=== PATIENT | female | born 1945 | race Caucasian/White ===

== ENCOUNTER 2019-02-22 13:41 | Emergency (ER) | payer OTHER ==
[~2019-02-22] VITALS: Ht 149.9 cm; Wt 95.2 kg
[~2019-02-22 13:41] MED LIST: ACET325 PO; ALBU90I INH; ALBU90OI INH; AZIT250 PO; CLOT1TC TOP; DICYCLOMINE; DOXY100 PO; DULO30 PO; FURO40; FURO80 PO; GABA300 PO; GLYB5; GLYMET2.5; HYDACE5 PO; HYDACE7.5 PO; INSR10I SUBQ; INSULANI SUBQ; INSULISPEN SUBQ; LORA.5 PO; METF500 PO; METO50 PO; MORP15ER PO; NITR.4SL SL; OXYC5 PO; POLY17UD PO; POTA10T; POTCHL10ER PO; PRED20 PO; QUIN10 PO; QUIN5; SENNA-DOCUSATE; SIMV10 PO; TRAM50 PO; WARF1; WARF2 PO; [UNRECOGNIZED DRUG - OTHER]; [UNRECOGNIZED DRUG - OTHER]
[2019-02-22 14:11] LABS: BASOPHILS ABSOLUTE AUTO 0.06 K/mm3 (0.00-0.23); BASOPHILS PERCENT AUTO 1 % (0-2); EOSINOPHILS ABSOLUTE AUTO 0.12 K/mm3 (0.00-0.68); EOSINOPHILS PERCENT AUTO 1 % (0-6); Hematocrit 42.2 % (33.0-51.0); Hemoglobin 13.9 g/dL (11.5-16.0); IMMATURE GRAN ABSOLUTE AUTO 0.03 K/mm3 (0.00-0.10); IMMATURE GRAN PERCENT AUTO 0 % (0-1); LYMPHOCYTES ABSOLUTE AUTO 1.87 K/mm3 (0.84-5.20); LYMPHOCYTES PERCENT AUTO 22 % (21-46); MONOCYTES ABSOLUTE AUTO 0.75 K/mm3 (0.16-1.47); MONOCYTES PERCENT AUTO 9 % (4-13); Mean Corpuscular HGB 32.2 pg (26.0-34.0); Mean Corpuscular HGB Conc 32.9 g/dL (31.5-36.5); Mean Corpuscular Volume 98 fL (80-100); Mean Platelet Volume 9.8 fL (9.1-12.4); NEUTROPHILS ABSOLUTE AUTO 5.77 K/mm3 (1.96-9.15); NEUTROPHILS PERCENT AUTO 67 % (41-73); Platelet Count 332 K/mm3 (150-400); RDW Coefficient Variation 13.3 % (11.7-14.2); RDW Standard Deviation 47.8 fL (35.1-46.3); Red Blood Cell Count 4.32 M/mm3 (3.80-5.20)
[2019-02-22 14:30] LABS: Alanine Aminotransfer (ALT/SGP 25 U/L (12-78); Albumin, Blood 3.7 g/dL (3.4-5.0); Albumin/Globulin Ratio 0.9 (0.8-1.8); Alk Phos 65 U/L (50-136); Anion Gap 7 mmol/L (6-16); Aspartate Aminotrans (AST/SGOT 21 U/L (12-37); Bilirubin, Total 0.5 mg/dL (0.1-1.0); Blood Urea Nitrogen 24 mg/dL (8-24); Bun/Creatinine Ratio 33.9 (12.0-20.0); CO2, Blood 28 mmol/L (21-32); Calcium, Blood 9.4 mg/dL (8.5-10.1); Chloride, Blood 106 mmol/L (98-108); Creatinine, Blood 0.71 mg/dL (0.40-1.00); Globulin, Blood 3.9 g/dL (2.2-4.0); Glomerular Filtration Rate >60 (60-); Glucose, Blood 187 mg/dL (70-99); Potassium, Blood 4.4 mmol/L (3.5-5.5); Sodium, Blood 141 mmol/L (136-145); Total Protein, Blood 7.6 g/dL (6.4-8.2)
[2019-02-22] MEDS ORDERED: Vibramycin100 MG PO (15:00)
== END 2019-02-22 15:31 | disposition home or self-care (01) ==
LOC: ER 13:41
PROVIDERS: Physician Assistant
DX: S81.802A Unspecified open wound, left lower leg, initial encounter (principal); L03.116 Cellulitis of left lower limb; E11.9 Type 2 diabetes mellitus without complications; I48.91 Unspecified atrial fibrillation; I10 Essential (primary) hypertension; Z88.0 Allergy status to penicillin; Z88.1 Allergy status to other antibiotic agents; Z91.018 Allergy to other foods; Z88.8 Allergy status to other drugs, medicaments and biological substances; Z79.899 Other long term (current) drug therapy
CPT/HCPCS: 36415; 73590; 80053; 85025; 87070; 87075; 87077; 87147; 87186; 87205; 96365; 99283-25

== ENCOUNTER 2019-03-05 00:26 | Day surgery (SDC) | payer OTHER ==
[~2019-03-05 00:26] MED LIST changes: +Vibramycin100 MG PO
== END 2019-03-05 22:57 | disposition home or self-care (01) ==
LOC: WOUND 00:26
DX: E11.622 Type 2 diabetes mellitus with other skin ulcer (principal); L97.822 Non-pressure chronic ulcer of other part of left lower leg with fat layer exposed; E11.40 Type 2 diabetes mellitus with diabetic neuropathy, unspecified; I87.2 Venous insufficiency (chronic) (peripheral); I10 Essential (primary) hypertension; I48.91 Unspecified atrial fibrillation
CPT/HCPCS: G0463

== ENCOUNTER 2019-03-18 00:34 | Day surgery (SDC) | payer OTHER | END 2019-03-18 22:44 | disposition home or self-care (01) | LOC: WOUND 00:34 | DX: E11.622 Type 2 diabetes mellitus with other skin ulcer (principal); L97.822 Non-pressure chronic ulcer of other part of left lower leg with fat layer exposed; E11.40 Type 2 diabetes mellitus with diabetic neuropathy, unspecified; I87.2 Venous insufficiency (chronic) (peripheral); I10 Essential (primary) hypertension; I48.91 Unspecified atrial fibrillation; E66.01 Morbid (severe) obesity due to excess calories; Z68.41 Body mass index [BMI] 40.0-44.9, adult ==

== ENCOUNTER 2019-03-25 00:06 | Day surgery (SDC) | payer OTHER | END 2019-03-25 22:36 | disposition home or self-care (01) | LOC: WOUND 00:06 | DX: E11.622 Type 2 diabetes mellitus with other skin ulcer (principal); L97.821 Non-pressure chronic ulcer of other part of left lower leg limited to breakdown of skin; E11.40 Type 2 diabetes mellitus with diabetic neuropathy, unspecified; I10 Essential (primary) hypertension; I48.91 Unspecified atrial fibrillation; I87.2 Venous insufficiency (chronic) (peripheral); E66.9 Obesity, unspecified; Z68.41 Body mass index [BMI] 40.0-44.9, adult ==

== ENCOUNTER 2019-04-01 00:24 | Day surgery (SDC) | payer OTHER | END 2019-04-01 22:47 | disposition home or self-care (01) | LOC: WOUND 00:24 | DX: E11.622 Type 2 diabetes mellitus with other skin ulcer (principal); L97.822 Non-pressure chronic ulcer of other part of left lower leg with fat layer exposed; E11.40 Type 2 diabetes mellitus with diabetic neuropathy, unspecified; I87.2 Venous insufficiency (chronic) (peripheral); I10 Essential (primary) hypertension; I48.91 Unspecified atrial fibrillation; E66.9 Obesity, unspecified; Z68.41 Body mass index [BMI] 40.0-44.9, adult ==

== ENCOUNTER 2019-04-03 07:39 | Day surgery (SDC) | payer OTHER | END 2019-04-03 23:05 | disposition home or self-care (01) | LOC: WOUND 07:39 | DX: E11.622 Type 2 diabetes mellitus with other skin ulcer (principal); L97.822 Non-pressure chronic ulcer of other part of left lower leg with fat layer exposed; I87.2 Venous insufficiency (chronic) (peripheral); I10 Essential (primary) hypertension ==

== ENCOUNTER 2019-04-07 14:30 | Day surgery (SDC) | payer OTHER | END 2019-04-07 23:07 | disposition home or self-care (01) | LOC: WOUND 14:30 | DX: E11.622 Type 2 diabetes mellitus with other skin ulcer (principal); L97.821 Non-pressure chronic ulcer of other part of left lower leg limited to breakdown of skin; I87.2 Venous insufficiency (chronic) (peripheral); E11.40 Type 2 diabetes mellitus with diabetic neuropathy, unspecified; I10 Essential (primary) hypertension; E66.9 Obesity, unspecified; Z68.41 Body mass index [BMI] 40.0-44.9, adult ==

== ENCOUNTER 2019-04-09 00:25 | Day surgery (SDC) | payer OTHER | END 2019-04-09 22:55 | disposition home or self-care (01) | LOC: WOUND 00:25 | DX: E11.622 Type 2 diabetes mellitus with other skin ulcer (principal); L97.822 Non-pressure chronic ulcer of other part of left lower leg with fat layer exposed; I87.2 Venous insufficiency (chronic) (peripheral) ==

== ENCOUNTER 2019-04-11 02:01 | Day surgery (SDC) | payer OTHER | END 2019-04-11 23:00 | disposition home or self-care (01) | LOC: WOUND 02:01 | DX: E11.622 Type 2 diabetes mellitus with other skin ulcer (principal); L97.822 Non-pressure chronic ulcer of other part of left lower leg with fat layer exposed; E11.40 Type 2 diabetes mellitus with diabetic neuropathy, unspecified; I10 Essential (primary) hypertension ==

== ENCOUNTER 2019-04-14 00:32 | Day surgery (SDC) | payer OTHER | END 2019-04-14 23:06 | disposition home or self-care (01) | LOC: WOUND 00:32 | DX: E11.622 Type 2 diabetes mellitus with other skin ulcer (principal); L97.821 Non-pressure chronic ulcer of other part of left lower leg limited to breakdown of skin; E11.40 Type 2 diabetes mellitus with diabetic neuropathy, unspecified; I10 Essential (primary) hypertension; I87.2 Venous insufficiency (chronic) (peripheral) ==

== ENCOUNTER 2019-04-16 15:33 | Day surgery (SDC) | payer OTHER | END 2019-04-16 23:13 | disposition home or self-care (01) | LOC: WOUND 15:33 | DX: E11.622 Type 2 diabetes mellitus with other skin ulcer (principal); L97.822 Non-pressure chronic ulcer of other part of left lower leg with fat layer exposed; I87.2 Venous insufficiency (chronic) (peripheral); I10 Essential (primary) hypertension ==

== ENCOUNTER 2019-04-18 01:07 | Day surgery (SDC) | payer OTHER | END 2019-04-18 22:59 | disposition home or self-care (01) | LOC: WOUND 01:07 | DX: E11.622 Type 2 diabetes mellitus with other skin ulcer (principal); L97.822 Non-pressure chronic ulcer of other part of left lower leg with fat layer exposed; E11.40 Type 2 diabetes mellitus with diabetic neuropathy, unspecified; I10 Essential (primary) hypertension; I87.2 Venous insufficiency (chronic) (peripheral) | CPT/HCPCS: G0463 ==

== ENCOUNTER 2019-04-25 14:30 | Day surgery (SDC) | payer OTHER | END 2019-04-25 23:48 | disposition home or self-care (01) | LOC: WOUND 14:30 | DX: E11.622 Type 2 diabetes mellitus with other skin ulcer (principal); L97.822 Non-pressure chronic ulcer of other part of left lower leg with fat layer exposed; E11.40 Type 2 diabetes mellitus with diabetic neuropathy, unspecified; I87.2 Venous insufficiency (chronic) (peripheral); I10 Essential (primary) hypertension | CPT/HCPCS: G0463 ==

== ENCOUNTER 2019-04-28 14:22 | Day surgery (SDC) | payer OTHER | END 2019-04-28 23:20 | disposition home or self-care (01) | LOC: WOUND 14:22 | DX: E11.622 Type 2 diabetes mellitus with other skin ulcer (principal); L97.822 Non-pressure chronic ulcer of other part of left lower leg with fat layer exposed; I10 Essential (primary) hypertension; I87.2 Venous insufficiency (chronic) (peripheral); E66.9 Obesity, unspecified; Z68.41 Body mass index [BMI] 40.0-44.9, adult ==

== ENCOUNTER 2019-05-05 14:23 | Day surgery (SDC) | payer OTHER | END 2019-05-05 22:54 | disposition home or self-care (01) | LOC: WOUND 14:23 | DX: E11.622 Type 2 diabetes mellitus with other skin ulcer (principal); L97.822 Non-pressure chronic ulcer of other part of left lower leg with fat layer exposed; E66.9 Obesity, unspecified; I87.2 Venous insufficiency (chronic) (peripheral); I10 Essential (primary) hypertension; Z68.41 Body mass index [BMI] 40.0-44.9, adult; Z79.899 Other long term (current) drug therapy; Z79.4 Long term (current) use of insulin; Z79.01 Long term (current) use of anticoagulants ==

== ENCOUNTER 2019-05-12 13:46 | Day surgery (SDC) | payer OTHER | END 2019-05-12 22:45 | disposition home or self-care (01) | LOC: WOUND 13:46 | DX: E11.622 Type 2 diabetes mellitus with other skin ulcer (principal); I87.2 Venous insufficiency (chronic) (peripheral); L97.829 Non-pressure chronic ulcer of other part of left lower leg with unspecified severity; E66.9 Obesity, unspecified; I10 Essential (primary) hypertension; Z68.41 Body mass index [BMI] 40.0-44.9, adult; Z79.899 Other long term (current) drug therapy; Z79.4 Long term (current) use of insulin | CPT/HCPCS: G0463 ==

== ENCOUNTER 2019-05-22 15:06 | Day surgery (SDC) | payer OTHER | END 2019-05-23 23:11 | disposition home or self-care (01) | LOC: WOUND 15:06 | DX: E11.622 Type 2 diabetes mellitus with other skin ulcer (principal); L97.829 Non-pressure chronic ulcer of other part of left lower leg with unspecified severity; E11.40 Type 2 diabetes mellitus with diabetic neuropathy, unspecified; G47.30 Sleep apnea, unspecified; F41.9 Anxiety disorder, unspecified; I48.91 Unspecified atrial fibrillation; I10 Essential (primary) hypertension; I87.2 Venous insufficiency (chronic) (peripheral); E66.9 Obesity, unspecified; Z68.42 Body mass index [BMI] 45.0-49.9, adult; Z88.0 Allergy status to penicillin; Z88.1 Allergy status to other antibiotic agents; Z91.018 Allergy to other foods; Z79.4 Long term (current) use of insulin; Z79.01 Long term (current) use of anticoagulants; Z79.899 Other long term (current) drug therapy | CPT/HCPCS: G0463 ==

== ENCOUNTER 2021-06-17 15:42 | Inpatient (IN) | payer OTHER ==
[~2021-06-17] VITALS: Ht 152.4 cm; Wt 99.2 kg
[~2021-06-17 15:42] MED LIST changes: -CLOT1TC TOP; +CLOTRIMAZOLE AF1524 TOP; +DOCUZEN 8.6-501 EACH PO; +MIRALAX17 GM PO; +NOVOLOG FL100 UNIT/3 SC; -POLY17UD PO; -SENNA-DOCUSATE; -[UNRECOGNIZED DRUG - OTHER]
[2021-06-17 16:40] LABS: BASOPHILS ABSOLUTE AUTO 0.05 K/mm3 (0.00-0.23); BASOPHILS PERCENT AUTO 1 % (0-2); EOSINOPHILS ABSOLUTE AUTO 0.17 K/mm3 (0.00-0.68); EOSINOPHILS PERCENT AUTO 2 % (0-6); Hematocrit 31.7 % (33.0-51.0); Hemoglobin 10.1 g/dL (11.5-16.0); IMMATURE GRAN ABSOLUTE AUTO 0.04 K/mm3 (0.00-0.10); IMMATURE GRAN PERCENT AUTO 0 % (0-1); LYMPHOCYTES ABSOLUTE AUTO 2.58 K/mm3 (0.84-5.20); LYMPHOCYTES PERCENT AUTO 25 % (21-46); MONOCYTES ABSOLUTE AUTO 1.12 K/mm3 (0.16-1.47); MONOCYTES PERCENT AUTO 11 % (4-13); Mean Corpuscular HGB 31.5 pg (26.0-34.0); Mean Corpuscular HGB Conc 31.9 g/dL (31.5-36.5); Mean Corpuscular Volume 99 fL (80-100); Mean Platelet Volume 9.7 fL (9.1-12.4); NEUTROPHILS ABSOLUTE AUTO 6.36 K/mm3 (1.96-9.15); NEUTROPHILS PERCENT AUTO 62 % (41-73); Platelet Count 364 K/mm3 (150-400); RDW Coefficient Variation 13.8 % (11.7-14.2); RDW Standard Deviation 50.6 fL (35.1-46.3); Red Blood Cell Count 3.21 M/mm3 (3.80-5.20); White Blood Cell Count 10.32 K/mm3 (4.00-11.30)
[2021-06-17 17:04] LABS: Alanine Aminotransfer (ALT/SGP 19 U/L (12-78); Albumin, Blood 2.8 g/dL (3.4-5.0); Albumin/Globulin Ratio 0.7 (0.8-1.8); Alk Phos 52 U/L (50-136); Anion Gap 14 mmol/L (6-16); Aspartate Aminotrans (AST/SGOT 17 U/L (12-37); Bilirubin, Total 0.3 mg/dL (0.1-1.0); Blood Urea Nitrogen 74 mg/dL (8-24); Bun/Creatinine Ratio 14.7 (12.0-20.0); CO2, Blood 23 mmol/L (21-32); Calcium, Blood 9.1 mg/dL (8.5-10.1); Chloride, Blood 90 mmol/L (98-108); Creatinine, Blood 5.05 mg/dL (0.40-1.00); Globulin, Blood 3.9 g/dL (2.2-4.0); Glomerular Filtration Rate 8 (60-); Glucose, Blood 52 mg/dL (70-99); Potassium, Blood 4.7 mmol/L (3.5-5.5); Sodium, Blood 127 mmol/L (136-145); Total Protein, Blood 6.7 g/dL (6.4-8.2); Troponin I <0.015 ng/mL (0.000-0.040)
[2021-06-17 19:08] LABS: Influenza A, PCR NEGATIVE (NEGATIVE); Influenza B, PCR NEGATIVE (NEGATIVE); Resp Syncytial Virus, PCR NEGATIVE (NEGATIVE); SARS-Cov-2 (COVID-19) PCR, MMC NEGATIVE (NEGATIVE)
--- NOTE | 2021-06-17 21:44 | NUR ---
PT RECEIVED AROUND 1930 FROM EMERGENCY DEPARTMENT. PT WITH PIV RIGHT FOREARM AND LEFT AC. D51/2NS @ 75ML/HR. ADDITIONAL SITE SOUGHT FOR NS 150ML/HR THE LEFT AC IS HER DOMINANT SIDE, ALARMING FREQUENTLY. PT IS UPSET AND TEARFUL THAT SHE IS HOSPITALIZED. DOESN'T UNDERSTAND HOW ONE DAY OF DIARRHEA AND VOMITING HAVE MADE HER SO ILL. HER LUNGS ARE CLEAR, TIGHT, DIMINISHED, SHE DENIES ANY PROBLEMS WITH THEM, ALTHOUGH SHE LOOKS SHORT OF BREATH, SHE DENIES IT. SATS ARE 99%. HER BELLY IS TIGHT, FIRM, TENDER, SHE STATES "HURTS". IS BURPING BUT NO EMESIS. SHE DENIES THE NEED TO URINATE, FEELS THAT SHE SHOULD BE ABLE TO GO TO THE TOILET IN THE ROOM, DISCUSSED USING THE BEDPAN WHEN THE NEED ARISES SHE IS PRETTY WEAK. SHE ADMITS TO DIABETES AND THIS BEING HER ONLY ILLNESS. 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 SHE HAS EXPRESSED THAT SHE WOULD LIKE TO NOT HAVE CPR SHOULD THAT BECOME AN ISSUE. SHE IS HAVING A DIFFICULT TIME GETTING COMFORTABLE SHE PREFERS TO SLEEP IN A RECLINER AT HOME. SHE DENIES ANY PRESSURE ULCERS OR SKIN CONCERNS, NONE VISIBLE. SHE HAS ASKED THAT SHE BE ABLE TO SLEEP.
--- NOTE | 2021-06-17 21:57 | NUR ---
JUST WENT IN TO CHECK ON JOSEFINA, SHE WAS IN A BIT OF "PANIC" SAYING SHE COULDN'T BREATHE, HER SATS WERE 96%, NO VISIBLE CHANGE ON THE ECG, THEN SHE SAYS, "I FORGOT TO TELL YOU I WEAR OXYGEN AT NIGHT". OXYGEN PLACED, CALL TO FOR UPDATE.
--- NOTE | 2021-06-18 00:36 | NUR ---
JOSEFINA ASKED FOR A SANDWICH AND SOME WATER, SO WHILE ASSESSING THINGS, NOTED THAT THE LEFT UPPER ARM IV SITE IS NOW SWOLLEN AND UNCOMFORTABLE TO THE PATIENT. THE IV FLUID WAS MOVED TO HER RIGHT FOREARM AND THAT SITE WAS ASSESSED AND NOTICED TO BE RED AND INFLAMMED WELL. PT NOT COMPLAINING, JUST SAID THEY WERE TENDER. CHARGE NURSE IN TO ASSESS THE VESSELS FOR PG PLACEMENT.
[2021-06-18 04:54] LABS: Bun/Creatinine Ratio 13.3 (12.0-20.0); Calcium, Blood 8.4 mg/dL (8.5-10.1); Creatinine, Blood 5.48 mg/dL (0.40-1.00); Potassium, Blood 5.7 mmol/L (3.5-5.5)
--- NOTE | 2021-06-18 06:14 | NUR ---
SINCE PLACED THE CENTRAL LINE, JOSEFINA HAS BEEN ABLE TO SLEEP SOME DURING THE SHIFT, THE IV PUMP WOULD BEEP OR AN ALARM WOULD SOUND AND SHE WOULD EXPRESS HER FRUSTRATION THAT SHE WASN'T ABLE TO STAY ASLEEP. SHE HAS NOT VOMITED, CONTINUES TO DRINK WATER. FEELS NAUSEOUS AT TIMES. SHE WAS C/O HER LEGS CRAMING AND WANTED TO SIT ON THE EDGE OF THE BED LETTING HER LEGS DANGLE. ONCE THERE SHE THOUGHT SHE WOULD TRY TO GO TO THE [facility] [place]. SHE TRANSFERRED WELL, ALTHOUGH CONTINUES TO SAY, "I JUST DON'T FEEL GOOD" AND "I JUST WANT TO GO HOME". SHE WAS ABLE TO SIT FOR A MOMENT OF TIME AND THEN SAID SHE JUST WASN'T ABLE TO GO. SHE WAS RETURNED TO BED AND NEEDED TO BE REPOSITIONED TO COMFORT. SHE DOESN'T LIKE ANY POSITION THAT REQUIRES HER HEAD TO BE LAID BACK. SHE BEGINS TO BREATHE RAPIDLY AND C/O DIZZINESS. SHE IS QUICKLY BOOSTED AND THE BACK RETURNED TO THE UPRIGHT POSITION. HER BLOOD PRESSURE CONTINUES TO BE LABILE, WHILE SLEEPING SHE DROPPED TO THE 80'S SYSTOLIC.
--- NOTE | 2021-06-18 08:00 | NUR ---
AM ASSESSMENT: PT IS A&0 X4. REPORTS 6/10 LOW BACK PAIN. PT APPEARS ANXIOUS. PT ASSISTED BY RECORD CUTTER OOB TO BSC. PT VOIDED SMALL AMOUNT OF DARK, ÁNGEL URINE AND HAD A BM-STOOL SENT PER ORDERS. PT REPORTS VERTIGO, VERY WEAK AND UNSTEADEY GETTING BACK TO BED. PT IS A HEAVY, 2 PERSON, FULL ASSIST. PT FLOPPED DOWN ON THE EDGE OF THE BED AND WAS NOT ABLE TO MOVE FURTHER. SHE WAS VERY SOB AND DIAPHORETIC. LUNGS DIMINISHED IN THE BASES AND SATS>90% ON 3 LITLERS NASAL CANULA. NO NOTED COUGH. NPO FOR NOW PT VOMITED 50 CC OF EMESIS AND THEN DRY HEAVING. # 16 FR YOUSIF PLACED STRICT I&O NEED. U/A SENT PER YOUSIF INSERTION PROTOCOL. PT DOMITILA AREA/LABIA FOLDS VERY RED AND EXCORIATED. WILL RE-CHECK CHEM PROFILE @ [address] DALEY.
[2021-06-18 09:56] LABS: Source, Urine Clean Catch
[2021-06-18 09:59] LABS: Appearance, Urine Hazy (Clear); Bilirubin, Urine Neg (Neg); Blood, Urine 3+ (Neg); Color, Urine Yellow (P-Yellow); Glucose Qualitative, Urine 1+ (Neg); Ketones, Urine Neg (Neg); Leukocyte Esterase, Urine 3+ (Neg); Nitrite, Urine Neg (Neg); Protein, Urine 3+ (Neg); Specific Gravity, Urine 1.025 (1.003-1.022); Urobilinogen, Urine NORM (Normal)
[2021-06-18 10:22] LABS: Bacteria Mod /hpf; Squamous Epithelial Cells Mod /hpf (Few)
--- NOTE | 2021-06-18 10:39 | NUR ---
PT VERY RESTLESS AND AGITATED. PICKING AT GOWN, REACHING FOR YOUSIF TUBING, AND PICKING AT RIJ CENTRAL LINE. DR DALEY UPDATED. PT MED WITH ATIVAN 1 MG IVP X 1-SEE EMAR.
--- NOTE | 2021-06-18 10:45 | NUR ---
PT PULLED STAT LOCK OFF AND WAS FOUND PULLING ON YOUSIF CATH. SMALL AMOUNT OF HEMATURIA NOTED.
[2021-06-18 10:53] LABS: Campylobacter Sp Not Detected (NOT DETECT)
[2021-06-18 10:54] LABS: Adenovirus F 40/41 Not Detected (NOT DETECT); Astrovirus Not Detected (NOT DETECT); Cryptosporidium Not Detected (NOT DETECT); Cyclospora Cayetanensis Not Detected (NOT DETECT); E. Coli O157 Not Detected (NOT DETECT); Entamoeba Histolytica Not Detected (NOT DETECT); Enteroaggregative E. coli-EAEC Not Detected (NOT DETECT); Enteropathogenic E. coli-EPEC Not Detected (NOT DETECT); Enterotoxigenic E. coli-ETEC Not Detected (NOT DETECT); Giardia Lamblia Not Detected (NOT DETECT); Norovirus GI/GII Not Detected (NOT DETECT); Plesiomonas Shigelloides Not Detected (NOT DETECT); Rotavirus A Not Detected (NOT DETECT); Salmonella Sp Detected (NOT DETECT); Sapovirus Not Detected (NOT DETECT); Shiga Toxin-prod E. coli-STEC Not Detected (NOT DETECT); Shigella/Enteroin E. coli-EIEC Not Detected (NOT DETECT); Vibrio Cholerae Not Detected (NOT DETECT); Vibrio Sp Not Detected (NOT DETECT); Yersinia Enterocolitica Not Detected (NOT DETECT)
[2021-06-18 11:24] LABS: Bun/Creatinine Ratio 12.7 (12.0-20.0); Creatinine, Blood 5.59 mg/dL (0.40-1.00); Potassium, Blood 5.8 mmol/L (3.5-5.5)
--- NOTE | 2021-06-18 11:43 | NUR ---
DR. DALEY UPDATED WITH CHEM PROFILE RESULTS. PT INTERMITTENTLY RESTLESS AND PICKING AT LINES AND TUBES. PT ORIENTED TO PERSON AND PLACE. HOWEVER, PT FALLING ASLEEP MID SENTENCE AND BECOMING MORE AND MORE OBTUNDED. RR 30'S AND PT AUDIBLY WHEEZY. DR. DALEY MADE AWARE. IVF STOPPED, PT MED WITH BUMEX 2 MG IVP X 1. URINE OUTPUT MINIMAL. STAT CXR DONE AND BIPAP PLACED.
--- NOTE | 2021-06-18 11:51 | NUR ---
PT RESTING QUIETLY ON BIPAP 14/8 WITH FIO2 45%-SATS>90%, LUNGS COARSE AND WHEEZY TO UPPER LOBES AND DIMINISHED WITH CRACKLES TO BASES.
--- NOTE | 2021-06-18 12:25 | NUR ---
PT POA FOR HEALTHCARE-DEB UPDATED TO PT DECLINE IN STATUS. FAMILY AWARE THAT PT RENAL FUNCTION CONTINUES TO DECLINE AND THAT DIALYSIS MAY BE NECESSARY IF PT DOES NOT RESPOND TO BUMEX. ACCORDING TO DEB, PT WAS VERY CLEAR THAT SHE DID NOT WANT ALOT OF INVASIVE PROCEDURES DONE. DEB STATES THAT PT HAS EXPRESSED "JUST LET ME GO IF IT IS MY TIME." DEB TO CALL AND CHECK ON PT @ 1330 PRIOR TO VISITING HOURS. IF PT CONDITION CONTINUES TO DECLINE, WILL ARRANGE FOR FAMILY MEETING TO DISCUSS PLAN OF CARE/POSSIBLE COMFORT CARE.
--- NOTE | 2021-06-18 13:30 | NUR ---
PT RESTLESS AND AGITATED-SHE PULLED OFF THE BIPAP MASK AND REFUSES TO PUT IT BACK ON. PT REPORTS GENERALIZED PAIN AND ONGOING NAUSEA. MED WITH FENTANYL 50 MCG IVP AND ZOFRAN 4 MG IVP X1 FOR PAIN/NAUSEA. PT REQUESTED THE BEDPAN TO HAVE A BN-PT HAD MEDIUM, SOFT, BROWN STOOL. DOMITILA CARE DONE AND WHALEN CHANGED-TOLERATED WELL.
--- NOTE | 2021-06-18 14:00 | NUR ---
DR. RUDD HERE TO SEE PT. PT TOLERATING A BREAK FROM BIPAP-SHE IS MORE AWAKE AND ALERT. PT ANSWERING QUESTIONS APPROPRIATELY. STILL MINIMAL URINE OUTPUT. RENAL US ORDERED. CPK AND URIC ACID ADDED TO 1100 BLOOD IN LAB. PT REPORTING NAUSEA, BUT NO EMESIS. O2 PLACED @ 3 LITERS NASAL CANULA. PT TO REMAIN NPO.
[2021-06-18 14:03] LABS: Uric Acid, Blood 9.4 mg/dL (2.6-6.0)
--- NOTE | 2021-06-18 15:09 | NUR ---
PT REPORTS FEELING ANXIOUS AND IF "AN ELEPHANT IS SITTING ON MY CHEST." PT TACHYPNEIC RR 30'S. PT USING ACCESSORY MUSCLES AND ABDOMEN TO BREATH. MED WITH ATIVAN 1 MG IVP X 1 AND PLACED BIPAP MASKE. RENAL ULTRA SOUND COMPLETE. WILL CONTACT DR. RUDD TO LET HER KNOW THAT THE US IS COMPLETE. ALSO, PT HAS AGREED TO BEGIN DIALYSIS ON A "TEMPORARY" BASIS. PT POA DEB AT BESIDE ASSISTING WITH DECISION MAKING.
[2021-06-18 16:07] LABS: BASOPHILS ABSOLUTE AUTO 0.03 K/mm3 (0.00-0.23); BASOPHILS PERCENT AUTO 0 % (0-2); EOSINOPHILS ABSOLUTE AUTO 0.03 K/mm3 (0.00-0.68); EOSINOPHILS PERCENT AUTO 0 % (0-6); Hematocrit 28.2 % (33.0-51.0); Hemoglobin 9.2 g/dL (11.5-16.0); IMMATURE GRAN ABSOLUTE AUTO 0.02 K/mm3 (0.00-0.10); IMMATURE GRAN PERCENT AUTO 0 % (0-1); LYMPHOCYTES PERCENT AUTO 12 % (21-46); MONOCYTES ABSOLUTE AUTO 0.85 K/mm3 (0.16-1.47); MONOCYTES PERCENT AUTO 9 % (4-13); Mean Corpuscular HGB 31.5 pg (26.0-34.0); Mean Corpuscular HGB Conc 32.6 g/dL (31.5-36.5); Mean Corpuscular Volume 97 fL (80-100); Mean Platelet Volume 9.2 fL (9.1-12.4); NEUTROPHILS ABSOLUTE AUTO 7.48 K/mm3 (1.96-9.15); NEUTROPHILS PERCENT AUTO 79 % (41-73); Platelet Count 295 K/mm3 (150-400); RDW Coefficient Variation 13.7 % (11.7-14.2); RDW Standard Deviation 48.9 fL (35.1-46.3); Red Blood Cell Count 2.92 M/mm3 (3.80-5.20); White Blood Cell Count 9.51 K/mm3 (4.00-11.30)
--- NOTE | 2021-06-18 16:09 | NUR ---
PT RESTING QUIETLY ON BIPAP AT THIS TIME. RESPIRATIONS LESS LABORED THAN PREVIOUS ASSESSMENT. LUNGS DIMINISHED WITH FEW FINE CRACKLES TO BASES. ECG CONTINUES AFIB WITH RATE 90'S. SBP TRENDING 90-110'S. PT REMAINS NPO. YOUSIF WITH HEMATURIA NOTED. IRRIGATED WITH [address] RANDHAWA AWARE OF CONSULT FOR DIALYSIS CATHETER PLACEMENT.
[2021-06-18 16:36] LABS: Albumin, Blood 2.5 g/dL (3.4-5.0); Albumin/Globulin Ratio 0.8 (0.8-1.8); Bilirubin, Total 0.4 mg/dL (0.1-1.0); Calcium, Blood 7.5 mg/dL (8.5-10.1); Creatinine, Blood 5.85 mg/dL (0.40-1.00); Globulin, Blood 3.2 g/dL (2.2-4.0); Potassium, Blood 6.8 mmol/L (3.5-5.5); Total Protein, Blood 5.7 g/dL (6.4-8.2)
--- NOTE | 2021-06-18 17:00 | NUR ---
DIALYSIS CATHETER HAS BEEN PLACED. PT BECAME VERY AGITATED DURING PROCEDURE AND WAS MEDICATED WITH ATIVAN 2 MG IVP AND FENTANYL 50 MCG IVP X 1. RSC TRIALYSIS CATHETER PLACED AND PLACEMENT CONFIRMED BY CXR. DR. RANDHAWA REMOVED THE RIJ QUAD LUMEN CENTRAL LINE AFTER HE PLACED THE TRIALYSIS CATHETER. K+6.[address] RANDHAWA AWAREJena KARLA FROM DIALYSIS HAS BEEN NOTIFIED AND PT TO UNDERGO HEMODIALYSIS IAN. YOUSIF CONTINUES WITH SMALL AMOUNT OF HEMATURIA.
--- NOTE | 2021-06-18 18:26 | NUR ---
MET WITH PT, HER DAUGHTER, ICU BEDSIDE AHSAN VILLA, AND DR. RUDD,NEPHROLOGY. PT HAS REMAINED VERY SOB R/T FLUID OVERLOAD. HOWEVER, HER OXYGEN SAT IS HIGH 90'S TO 100. HER HR REMAINES STABLE. DR. RUDD RECOMMENDS PT TRY DIALYSIS FOR "A FEW DAYS", AND PT IS AGREEABLE. SHE IS ADAMANT SHE WOULD NOT GO ON DIALYSIS ON A REGULAR BASIS, AND SHE WILL ONLY TRIAL IT NOW AND THEN DECIDE.
--- NOTE | 2021-06-18 18:27 | NUR ---
KARLA FROM DIALYSIS IN ROOM PREPARING PT FOR HEMODIALYSIS. PT RESTING QUIETLY ON BIPAP. NO NOTED DISTRESS. WILL REPORT TO ONCOMING SHIFT.
--- NOTE | 2021-06-18 20:54 | NUR ---
RECEIVED JOSEFINA FROM AHSAN VILLA. AHSAN ACOSTA IN PROCESS OF HER DIALYSIS. SHE IS ON BIPAP 26/02, RATE 14. SHE REACHES FOR MY HAND, WHEN I TELL HER I AM HER NURSE TONIGHT. DURING ASSESSMENT, NOTED TO HAVE BLEEDING FROM RIGHT GROIN, SHE IS CLEANED UP AND GAUZE PLACED OVER THE PUNCTURE SITE. SHE IS IN ATRIAL FIB, RATE 60-70, BP STEADY. YOUSIF IN PLACE WITH HEMATURIA. LUNGS TIGHT,DIM, FINE CRACKLES HEARD. ABD IS ROUND,TAUT,TENDER. SCD'S IN PLACE, GOOD PEDAL PULSES.
--- NOTE | 2021-06-18 21:46 | NUR ---
JOSEFINA AWOKE AFTER COMPLETION OF DIALYSIS AND PULLED OFF HER BIPAP, SHE WAS PLACED ON O2 VIA NC AT 3L. HER SATS ARE DIPPING INTO THE HI 80'S, INCREASED TO 5L/NC. 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
--- NOTE | 2021-06-18 22:40 | NUR ---
2200-JOSEFINA'S SATS NOT MAINTAINING WITH THE NASAL CANNULA, CALL TO RESP.THER. AND PT PLACED ON HIFLO NC 30L/40%. TOLERATING WELL. PT AWAKENS, HUNGRY. NO N/V. WANTS WATER AND SMALL SANDWICH.
--- NOTE | 2021-06-19 01:34 | NUR ---
JOSEFINA IS COMPLAINING OF ALL OF HER MUSCLES HURTING. SHE SAYS THAT EVERY TIME SHE TRIES TO MOVE IT HURTS. HAS CONTINUED TO COMPLAIN OF PAIN IN THE LEFT THUMB AND FIRST TWO FINGERS. SHE WAS MEDICATED WITH FENTANYL. SHE THEN WAS HAVING TROUBLE WITH THE REMOTE AND COULDN'T FIGURE OUT HOW TO CHANGE CHANNELS. SHE WAS EFFECTIVELY UTILIZING HER CALL BUTTON, BUT THE TV CHANNELS WAS HARD FOR HER TO NAVIGATE. SHE HAS BEEN STARTED ON LEVO @ 2MCG/MIN FOR SOFT BLOOD PRESSURES. CONTINUES TO SOUND LIKE SHE IS STRUGGLING FOR BREATH, SATS >97%, ON 30L AND 30% AIRVO. NO RALES OR RHONCHI HEARD.
[2021-06-19 05:15] LABS: BASOPHILS ABSOLUTE AUTO 0.04 K/mm3 (0.00-0.23); BASOPHILS PERCENT AUTO 0 % (0-2); EOSINOPHILS ABSOLUTE AUTO 0.11 K/mm3 (0.00-0.68); EOSINOPHILS PERCENT AUTO 1 % (0-6); Hematocrit 27.3 % (33.0-51.0); IMMATURE GRAN ABSOLUTE AUTO 0.03 K/mm3 (0.00-0.10); IMMATURE GRAN PERCENT AUTO 0 % (0-1); LYMPHOCYTES PERCENT AUTO 11 % (21-46); MONOCYTES ABSOLUTE AUTO 0.92 K/mm3 (0.16-1.47); MONOCYTES PERCENT AUTO 10 % (4-13); Mean Corpuscular HGB 31.4 pg (26.0-34.0); Mean Corpuscular Volume 95 fL (80-100); Mean Platelet Volume 9.3 fL (9.1-12.4); NEUTROPHILS ABSOLUTE AUTO 7.14 K/mm3 (1.96-9.15); NEUTROPHILS PERCENT AUTO 77 % (41-73); Platelet Count 316 K/mm3 (150-400); RDW Coefficient Variation 13.7 % (11.7-14.2); RDW Standard Deviation 47.8 fL (35.1-46.3); Red Blood Cell Count 2.87 M/mm3 (3.80-5.20); White Blood Cell Count 9.24 K/mm3 (4.00-11.30)
[2021-06-19 05:55] LABS: Magnesium, Blood 2.8 mg/dL (1.6-2.4)
[2021-06-19 06:00] LABS: Albumin, Blood 2.4 g/dL (3.4-5.0); Albumin/Globulin Ratio 0.7 (0.8-1.8); Bilirubin, Total 0.4 mg/dL (0.1-1.0); Bun/Creatinine Ratio 10.7 (12.0-20.0); Calcium, Blood 8.2 mg/dL (8.5-10.1); Creatinine, Blood 4.12 mg/dL (0.40-1.00); Globulin, Blood 3.6 g/dL (2.2-4.0)
[2021-06-19 06:02] LABS: Potassium, Blood 4.4 mmol/L (3.5-5.5)
--- NOTE | 2021-06-19 06:14 | NUR ---
JOSEFINA HAS BEEN AWAKE MOST OF THE SHIFT. SHE HAS BEEN HALLUCINATING, TALKING TO HER DOG, POLICE OFFICERS AT HER DOOR, HER DAD, HER , A PILLOW. SHE HAS BEEN TRYING TO PULL OFF HER OXYGEN, SHE DOESN'T TOLERATE THE PHENERGAN, IT CAUSES MORE CONFUSION. FENTANYL HELPS WITH HER ACHES BRIEFLY AND ATIVAN DOESN'T HELP HER TO SLEEP. SHE WAS RESTRAINED AT ONE POINT FOR PULLING OFF HER OXYGEN REPEATEDLY AND PULLING OFF HER GOWN AND MONITORS. SHE IS NOW UNRESTRAINED. SHE IS ON LEVO @ 2MCG/MIN WITH MAPS AROUND 65, YOUSIF DID HAVE ALMOST 600 OF HEME COLORED URINE RETURN. SHE HAS DENIED N/V, ATTEMPTED TO USE THE BEDPAN X1, SHE ATE A SANDWICH AND JELLO FOR C/O HUNGER JUST BEFORE MIDNOC. SHE HAS BEEN HOLLERING OUT FOR PEOPLE WHO ARE NOT HERE AND BEING FRUSTRATED WITH STAFF FOR REORIENTING HER. AIRVO CONTINUES @ 30L/30%.
--- NOTE | 2021-06-19 08:00 | NUR ---
PT AWAKE AND ALERT. DISORIENTED AND HALLUCINATING AT TIMES. PT REACHES FOR AIRVO, AND DIALYSIS CATHETER. APPEARS IMPULSIVE AND DIFFICULT TO RE-DIRECT. SOFT WRIST RESTRAINTS IN PLACE TO PREVENT ACCIDENTAL REMOVAL OF VITAL LINES/TUBES. PT DENIES PAIN OR NAUSEA. PT REPORTS FEELING "LIKE AN ELEPHANT IS SITTING ON MY CHEST!" PT REMARKS THAT SHE DOES FEEL BETTER THAN YESTERDAY. ECG SHOWS AFIB WITH RATED 80'S. MAP TRENDING >60-65 WITH LEVOPHED @ 2 MG/MIN. LUNGS DIMINISHED IN THE BASES. PT SOB WITH MINIMAL EXERTION. SATS>90% ON AIRVO 30LITERS/30%. PT STATES THAT SHE IS "DYING OF THIRST." WILL DISCUSS RESUMING DIET WITH DR. DALEY LATER TODAY PROVIDED THAT PT IS NOT IN RESPIRATORY DISTRESS. YOUSIF DRAINING ADEQUATE AMOUNT OF YELLOW URINE TO BSD.
--- NOTE | 2021-06-19 09:33 | NUR ---
ECHO IN PROCESS.
--- NOTE | 2021-06-19 10:57 | NUR ---
PT APPEARS RESTLESS AND AGITATED. PT IS TACHYPNEIC. PT REPORTS 9/10 RIGHT SHOULDER PAIN-MED WITH FENTANYL 50 MCG IVP X 1 FOR PAIN. PT GIVEN ATIVAN 1 MG IVP FOR ANXIETY/AGITATION. REPOSITIONED TO COMFORT IN HIGH IQBAL'S POSITION. EXTREMITIES ELEVATED ON PILLOWS.
--- NOTE | 2021-06-19 12:00 | NUR ---
PT APPEARS LESS ANXIOUS, BUT IS STILL HALLUCINATING AT TIMES. FOR EXAMPLE, PT TALKING TO SOMEONE IN THE ROOM AND ON THE PHONE, BUT THERE IS NO ONE PRESENT. PT IS COOPERATIVE WITH CARE. LESS DYSPNEIC NOTED WITH EXERTION. SATS>90% ON AIRVO 30 LITERS/FIO2 30%. PT TOLERATING SIPS OF FLUIDS WELL. WILL ADVANCE DIET TOLERATED.
--- NOTE | 2021-06-19 14:00 | NUR ---
ASSISTED PT TO SIT AT THE SIDE OF THE BED FOR LUNCH. PT SOB WITH EXERTION, BUT OVERALL TOLERATED WELL AND ABLE ASSIST. ADA LUNCH TRAY GIVEN. PT ABLE TO FEED HERSELF.
--- NOTE | 2021-06-19 18:35 | NUR ---
SHIFT SUMMARY: SEE PREVIOUS NOTES. PT IS ALERT AND ORIENTED X2, IS HALLUCINATING AT TIMES BOTH AUDITORY/VISUAL. WILL REACH FOR ITEMS THAT ARE NOT THERE. PT CONTINUES TO BE IN AFIB WITH HR IN THE 80S', LEVOPHED TURNED OFF AT 1400, RESTRATED AT APRROX 1800, 2MCG/MIN, INCREASED TO 5MCG/MIN TO MAINTAIN MAP ABOVE 65. PT CONTINUES TO BE ON HIGH-FLOW 30L, FiO2 30% , SPO2 ABOVE 90% PT BECOMES SOB WITH ACTIVITY. ABD MILD DISTENED, ABD TENDER, ATTEMPTED TO PLACE ON BSC FOR BM, NO SUCCESS. YOUSIF PATENT, DRAINING TO GRAVITY, GOOD URINE OUTPUT 3400 ML.
--- NOTE | 2021-06-19 20:00 | NUR ---
ASSUMING PT CARE: PT SITTING UP IN BED, PICKING @ GOWN, PULLING @ CORDS & AIRVO TUBING. APPEARS ANXIOUS, FRUSTRATED. A&Ox3. STS SHE WANTS TO GO HOME & ASKS IF SHE WILL BE ABLE TO LEAVE TOMORROW. PT INSISTS SHE NEEDS TO SIT ON THE BSC. AFTER MUCH CONSOLING, PT IS ABLE TO BE REDIRECTED TO LAY IN BED. +BED ALARM, CURTAIN OPEN. SEE INITIAL SHIFT DOCUMENTATION FOR FULL ASSESSMENT.
--- NOTE | 2021-06-20 00:02 | NUR ---
PT SLEEPING SOUNDLY. AWAKES WHEN STAFF ENTERS ROOM & BECOMES ANXIOUS WHEN AWAKE. PT EXPRESSES HER FRUSTRATION THAT IT IS ONLY MIDNIGHT, "I HAVE ALL NIGHT TO GO? NO, I WANT TO EAT BREAKFAST & GO HOME". PT ENCOURAGED TO REST TONIGHT SO SHE WILL BE ABLE TO PARTICIPATE IN PT & BECOME STRONG ENOUGH TO GO HOME. PROVIDED W/ WATER, SCDs REMOVED. PT QUICKLY RETURNS TO SLEEPING WHEN UNDISTURBED.
[2021-06-20 04:22] LABS: BASOPHILS ABSOLUTE AUTO 0.03 K/mm3 (0.00-0.23); BASOPHILS PERCENT AUTO 0 % (0-2); EOSINOPHILS ABSOLUTE AUTO 0.25 K/mm3 (0.00-0.68); EOSINOPHILS PERCENT AUTO 3 % (0-6); Hematocrit 28.6 % (33.0-51.0); Hemoglobin 9.1 g/dL (11.5-16.0); IMMATURE GRAN ABSOLUTE AUTO 0.03 K/mm3 (0.00-0.10); IMMATURE GRAN PERCENT AUTO 0 % (0-1); LYMPHOCYTES ABSOLUTE AUTO 1.25 K/mm3 (0.84-5.20); LYMPHOCYTES PERCENT AUTO 17 % (21-46); MONOCYTES ABSOLUTE AUTO 0.85 K/mm3 (0.16-1.47); MONOCYTES PERCENT AUTO 12 % (4-13); Mean Corpuscular HGB 31.1 pg (26.0-34.0); Mean Corpuscular HGB Conc 31.8 g/dL (31.5-36.5); Mean Corpuscular Volume 98 fL (80-100); Mean Platelet Volume 9.8 fL (9.1-12.4); NEUTROPHILS ABSOLUTE AUTO 4.99 K/mm3 (1.96-9.15); NEUTROPHILS PERCENT AUTO 67 % (41-73); Platelet Count 327 K/mm3 (150-400); RDW Coefficient Variation 13.8 % (11.7-14.2); RDW Standard Deviation 49.5 fL (35.1-46.3); Red Blood Cell Count 2.93 M/mm3 (3.80-5.20)
[2021-06-20 04:58] LABS: Albumin, Blood 2.6 g/dL (3.4-5.0); Anion Gap 9 mmol/L (6-16); Blood Urea Nitrogen 42 mg/dL (8-24); Bun/Creatinine Ratio 12.1 (12.0-20.0); CO2, Blood 28 mmol/L (21-32); Calcium, Blood 8.1 mg/dL (8.5-10.1); Chloride, Blood 103 mmol/L (98-108); Creatinine, Blood 3.46 mg/dL (0.40-1.00); Glomerular Filtration Rate 13 (60-); Glucose, Blood 176 mg/dL (70-99); Magnesium, Blood 2.6 mg/dL (1.6-2.4); Phosphorus, Blood 4.9 mg/dL (2.5-4.9); Potassium, Blood 4.3 mmol/L (3.5-5.5); Sodium, Blood 140 mmol/L (136-145)
--- NOTE | 2021-06-20 06:42 | NUR ---
UPDATE: FAMILY UPDATED. PT'S DAUGHTER IN LAW, DEB, CALLS FOR AN UPDATE. GIVEN PT'S PROGRESSION T/O THE NIGHT & HER IMPROVEMENTS IN MENTATION & IN O2 REQUIREMENTS. FAMILY SEEMED RECEPTIVE BUT ANXIOUS TO HAVE HER HOME. OPPORTUNITY PROVIDED FOR QUESTIONS. DENIES ANY UNMET NEEDS. WILL UPDATE PT WHEN SHE AWAKES.
--- NOTE | 2021-06-20 06:56 | NUR ---
SHIFT SUMMARY: PT SLEPT INTERMITTENTLY T/O THE NIGHT. SHE WAS UNABLE TO TOLERATE THE AIRVO D/T THE HEATED AIR & WAS PLACED ON A NC. STILL HER O2 REQUIREMENTS CONTINUED TO DEC T/O THE NIGHT. NOW 2L/MIN & SPO2 97%. MENTATION ALSO POSITIVELY PROGRESSED T/O THE SHIFT. NO HALLUCINATIONS OBSERVED, PT WAS APPROPRIATE & EASY TO REORIENT. NO BM THIS SHIFT. GOOD URINE OUTPUT.
[2021-06-20 10:08] LABS: HBSAG SCREEN Negative (Negative); HEP A AB, IGM Negative (Negative); HEP B CORE AB, IGM Negative (Negative); HEP C VIRUS AB <0.1 (0.0-0.9)
[2021-06-20 15:46] LABS: International Normalized Ratio 1.02; Prothrombin Time Results 10.7 Sec (9.7-11.5)
[2021-06-20 16:46] LABS: Albumin, Blood 2.9 g/dL (3.4-5.0); Anion Gap 8 mmol/L (6-16); Blood Urea Nitrogen 39 mg/dL (8-24); Bun/Creatinine Ratio 16.1 (12.0-20.0); CO2, Blood 28 mmol/L (21-32); Calcium, Blood 8.9 mg/dL (8.5-10.1); Chloride, Blood 103 mmol/L (98-108); Creatinine, Blood 2.42 mg/dL (0.40-1.00); Glomerular Filtration Rate 20 (60-); Glucose, Blood 280 mg/dL (70-99); Magnesium, Blood 2.4 mg/dL (1.6-2.4); Phosphorus, Blood 2.7 mg/dL (2.5-4.9); Potassium, Blood 4.1 mmol/L (3.5-5.5); Sodium, Blood 139 mmol/L (136-145)
--- NOTE | 2021-06-20 17:12 | NUR ---
PT IS ORIENTEDx4 TODAY. AT ONE POINT SHE ASKED IF HER BROTHER WAS IN THE HALLWAY, AND ANOTHER TIME ASKED IF THERE WAS A CHILD IN THE HALLWAY. UNCLEAR IF THIS IS RELATED TO DELERIUM OR IF THE MAN WHO WALKED BY REALLY LOOKED LIKE HER BROTHER. SHE HAS BEEN CALM AND COOPERATIVE, ALTHOUGH A LITTLE FRUSTRATED. COMPLAINED OF MUSCLE CRAMPS AND SPASMS THIS AFTERNOON, TREATED WITH 25 OF FENTANYL. THESE SPASMS HAVE SINCE RESOLVED. SHE HAS BEEN IN THE CHAIR MOST OF THE DAY AND TRANSFERS WELL WITH STANDBY ASSISTANCE AND A WALKER. ROOM AIR. A FIB RATE CONROLLED 80S-100S. LEVOPHED TURNED OFF THIS MORNING, BP HAS BEEN STABLE. GOOD APPETITE. SHE HAD 3 SMALL FORMED BMS TODAY. SIGNIFICANT CLEAR YELLOW UOP FROM BENJA, APPROX 3L, DR. RUDD AWARE.
--- NOTE | 2021-06-20 20:00 | NUR ---
ASSUMING PT CARE: PT SITTING UP IN HIGH FOWLERS. ASLEEP, BUT AWAKES WHEN STAFF ENTERS ROOM. APPROPRIATELY INTERACTIVE. A&O x3. PLACED ON 3L/MIN VIA NC FOR BEDTIME PER BASELINE. SPO2 98%. DENIES PAIN, NEEDS. QUICKLY RETURNS TO SLEEPING WHEN UNDISTURBED. SEE INITIAL SHIFT DOCUMENTATION FOR FULL ASSESSMENT.
--- NOTE | 2021-06-21 00:30 | NUR ---
PT W/ STANDBY ASSIST TO BSC W/ WALKER. MINIMAL DYSPNEA NOTED. +MED BM. PT STS SHE IS VERY UNCOMFORTABLE IN THE BED. ASSISTED TO RECLINER W/ STANDBY ASSIST. PT DID VERY WELL, NO DESATURATION OBSERVED OR NOTABLE DYSPNEA. PROVIDED W/ SF PUDDING & WATER CUP. MENTATION CONTINUES TO REMAIN APPROPRIATE & APPEARS MUCH LESS DEPRESSED & ANXIOUS. SHE IS TALKATIVE & PLEASANT. PT IN RELCINER, READING, CALL LIGHT W/IN REACH.
--- NOTE | 2021-06-21 04:45 | NUR ---
PT WAS ABLE TO SLEEP FOR A FEW HOURS, HOWEVER PT AWAKES W/ L HIP PAIN & FEELING ANXIOUS. MEDICATED W/ PRN FENTANYL. PT CONTINUES TO HAVE CLEAR COGNITION, ORIENTED x3 & ABLE TO FOLLOW COMMANDS. NO HALLUCINATIONS OR EPISODES OF CONFUSION OBSERVED.
[2021-06-21 04:47] LABS: Hematocrit 27.6 % (33.0-51.0); Hemoglobin 8.6 g/dL (11.5-16.0)
[2021-06-21 05:04] LABS: International Normalized Ratio 1.01; Prothrombin Time Results 10.6 Sec (9.7-11.5)
[2021-06-21 06:24] LABS: Albumin, Blood 2.6 g/dL (3.4-5.0); Anion Gap 8 mmol/L (6-16); Blood Urea Nitrogen 33 mg/dL (8-24); Bun/Creatinine Ratio 19.3 (12.0-20.0); CO2, Blood 25 mmol/L (21-32); Calcium, Blood 8.2 mg/dL (8.5-10.1); Chloride, Blood 104 mmol/L (98-108); Creatinine, Blood 1.71 mg/dL (0.40-1.00); Ferritin, Serum 57 ng/mL (8-252); Glomerular Filtration Rate 29 (60-); Glucose, Blood 284 mg/dL (70-99); Iron Serum 27 ug/dL (50-170); Percent Saturation 8.3 % (15.0-50.0); Phosphorus, Blood 2.8 mg/dL (2.5-4.9); Potassium, Blood 4.6 mmol/L (3.5-5.5); Sodium, Blood 137 mmol/L (136-145); Total Iron Binding Capacity 324 ug/dL (250-450)
--- NOTE | 2021-06-21 06:29 | NUR ---
SHIFT SUMMARY: PT HAD A MUCH MORE RESTFUL NIGHT COMPARED TO LAST NIGHT. MENTATION HAS ALSO IMPROVED. SHE HAS BEEN APPROPRIATE FOR THE ENTIRE SHIFT, NO HALLUCINATIONS OR CONFUSION, COMPLIANT W/ CARE & AGREEABLE. HR AFIB, 70s. SPO2 >95%. CONTINUES TO HAVE GOOD UOP. +BM x1. SEE PREVIOUS NOTATIONS FOR PT PROGRESSION. PLAN FOR POSSIBLE STATUS CHANGE TODAY.
--- NOTE | 2021-06-21 08:28 | NUR ---
INTIAL SUMMARY: PATIENT RESTING, FINISHED FLUIDS, IN NOW SWTICHED TO TKP NS, PATIENT ABLE TO CONFIRM SELF, ENDORSES POOR SLEEP THROUGH THE NIGHT ABLE TO BE MOVED TO THE RECLINER FOR MORNING CARE AND BREAKFAST WITH 1 PERSON ASSISTANCE, ENDORSED SOME PAIN TO THE LEFT LOWER EXTRREMITY AT THE LEVEL OF THE UPPER ANKLE LOW CALF. WILL INFORM PROVIDER, FAINT PULSES IN THE LOWER EXTREME WITH SOME SKIN DISCOLARATION LIKELY OF SOME VENOUS CONGESTION, VERY SENSITIVE FEET POSSIBLE FROM DM ASSOCIATED NUEROPATHY, SLOWER CAP REFILL ON LOWER EXTREMS. WILL CONTINUE TO MONITOR MENTATION AND CARDIAC SHE IS IN AFIB CONTROLLED.
--- NOTE | 2021-06-21 10:04 | NUR ---
OFFERED SCD'S, PATIENT REFUSED AT THIS TIME, WILL ASK AGAIN LATER.
--- NOTE | 2021-06-21 11:38 | NUR ---
Received referral from nurse district manager primary care sales (Saima Daniels) on 06/20/2021. Patient is to discharge with orders for home health and elected [facility]. Met with patient to further discuss the above. Patient is agreeable to the above. Discussed homebound status definition with patient. Patient verbalized understanding. Discussed what home health is vs what it is not (in home caregivers/housekeeping). Patient verbalized understanding. Discussed the next steps in the process of an initial assessment to determine frequency of visits. Again patient verbalized understanding. Offered a chance for patient to ask questions regarding the above of which there were none. At this time patient has no discharge orders entered. Will continue to monitor and follow for discharge. Jen Garcia Referral Liaison
--- NOTE | 2021-06-21 17:39 | NUR ---
END OF SHIFT SUMMARY: PATIENT MENTATION IMPROVED FROM THE AM, NO HALLUCINATIONS, EITHER VISUAL OR AUDITORY. HER STRENGTH IN HER LEGS, AND UPPER EXTREMES HAS IMPROVED. PATIENT WAS A SBA TO BSC AND RECLINER. PATIENT COMPLETELY ALERT AND ORIENTED, SOME NAUSEA AFTER THE FERRLECIT INFUSION, DECREASED RATE, INCREASED KVO TO DILUTE AND MEDICATED NAUSEA PER MAR. CBG'S HAVE BEEEN TRENDING UPWARD, HOSPITALIST INCREASED SS COVERAGE, RA, BASELINE 02 AT NIGHT WHILE SLEEPING 3L, WILL INFORM ONCOMING NURSE MAY BE NEEDED. PATIENT HAS BEEN ABLE TO REPOSITION ATLEAST EVERY HOUR BY SELF IN BED OR STAFF. DENIES CHEST PAIN OR SOB. DENIES ABD PAIN, RIGHT HAND IV PLACED DURING SHIFT BY ORIENTING NURSE. YOUSIF REMOVED DURING SHIFT. MED NO TELE STATUS.
--- NOTE | 2021-06-21 19:45 | NUR ---
ASSUMED CARE OF PT. SHE IS AOX4, VERY TALKATIVE AND TELLS ME STORIES ABOUT HER FAMILY. SHE DENIES PAIN AT THIS TIME, IS CURRENTLY SITTING IN CHAIR AT THE BEDSIDE READING BOOKS. DISCUSSED POC FOR THE NIGHT WITH PT. WILL CONTINUE TO MONITOR.
--- NOTE | 2021-06-21 23:51 | NUR ---
PT CRIES OUT WITH PAIN DUE TO TINGLING IN HER R FOOT FROM HER NEUROPATHY. SHE HAS NOT HAD HER LYRICA SINCE ADMISSION TO THE HOSPITAL, SO DR. JENNINGS IS CALLED FOR ORDER. PT WISHES TO SIT IN CHAIR FOR AWHILE.
[2021-06-22 03:48] LABS: International Normalized Ratio 1.02; Prothrombin Time Results 10.7 Sec (9.7-11.5)
[2021-06-22 04:25] LABS: Anion Gap 10 mmol/L (6-16); Blood Urea Nitrogen 28 mg/dL (8-24); Bun/Creatinine Ratio 24.3 (12.0-20.0); CO2, Blood 23 mmol/L (21-32); Calcium, Blood 9.3 mg/dL (8.5-10.1); Chloride, Blood 103 mmol/L (98-108); Creatinine, Blood 1.15 mg/dL (0.40-1.00); Glomerular Filtration Rate 46 (60-); Glucose, Blood 228 mg/dL (70-99); Phosphorus, Blood 2.5 mg/dL (2.5-4.9); Potassium, Blood 4.7 mmol/L (3.5-5.5); Sodium, Blood 136 mmol/L (136-145)
--- NOTE | 2021-06-22 06:13 | NUR ---
SHIFT SUMMARY- PT REMAINS AOX4 OVERNIGHT. SHE SLEEPS FOR SHORT PERIODS SITTING UPRIGHT SUPPORTED BY PILLOWS IN THE BED. NEUROPATHY PAIN IMPROVED WITH LYRICA. SHE IS AFEBRILE. 1 PERSON ASSIST TO COMMODE AND CHAIR. DIALYSIS CATH DC'D, WNL, OCCLUSIVE DRESSING IN PLACE AND SITE IS WNL. PT IS HOPING TO BE DC'D HOME TODAY. WILL CONTINUE TO MONITOR AND REPORT TO ONCOMING SHIFT.
--- NOTE | 2021-06-22 07:00 | NUR ---
ASSUME CARE: I have assumed care of pt at this time. She is currently resting in bed with NC in place.
--- NOTE | 2021-06-22 10:12 | NUR ---
UPDATE: Pt notes that she is constipated and is requesting a laxative. Dr Richard called, no answer.
--- NOTE | 2021-06-22 11:11 | NUR ---
IN HOUSE TRANSFER: Pt transferred to room [address] SCAN SPECIAL PROCEDURES TECHNOLOGIST. Pt is a/o x 4 and ambulatory with furnature assistance. She does report some abdominal discomfort and constipation. Provider was called and oncoming nurse notified in report.
[2021-06-22] MEDS ORDERED: PREG50 PO (11:49)
[2021-06-22] MEDS ORDERED: LORA.5 PO (12:24)
[2021-06-22] MEDS ORDERED: FERSU300 PO (12:26)
[2021-06-22] MEDS ORDERED: ASCO500 PO (12:26)
[2021-06-22] MEDS ORDERED: XARELTO20 MG PO (12:31)
--- NOTE | 2021-06-22 15:32 | NUR ---
SUMMARY PT DISCHARGED TO HOME, PT VERBALIZED UNDERSTANDING OF DISCHARGE INSTRUCTIONS REGARDING FOLLOW UP AND MEDS, PT TAKEN OUT SAFELY VIA WHEELCHAIR
--- NOTE | 2021-06-23 09:32 | NUR ---
Patient has now discharged. Gathered all supporting documentation for referral (face sheet, face to face, med list, H&P, discharge summary, and most recent PT assessment) and sent to [facility] for review. No further interventions required. Jen Garcia Referral Liaison
== END 2021-06-22 15:30 | disposition home health service (06) | DRG 682 ==
LOC: ER 15:42 → ICUW 15:43 → MEDS 06-22 11:31
PROVIDERS: Emergency Medicine; Internal Medicine; Pharmacist; Physician Assistant; ADMIT Internal Medicine
PROC: 02HV33Z Insertion of Infusion Device into Superior Vena Cava, Percutaneous Approach (ICD-10-PCS; principal; 2021-06-18)
PROC: 3E043XZ Introduction of Vasopressor into Central Vein, Percutaneous Approach (ICD-10-PCS; 2021-06-18)
PROC: 5A1D70Z Performance of Urinary Filtration, Intermittent, Less than 6 Hours Per Day (ICD-10-PCS; 2021-06-18)
DX: N17.0 Acute kidney failure with tubular necrosis (principal); R57.1 Hypovolemic shock; E87.1 Hypo-osmolality and hyponatremia; A02.0 Salmonella enteritis; I48.20 Chronic atrial fibrillation, unspecified; E87.5 Hyperkalemia; G47.33 Obstructive sleep apnea (adult) (pediatric); E11.42 Type 2 diabetes mellitus with diabetic polyneuropathy; Z66 Do not resuscitate; Z20.822 Contact with and (suspected) exposure to COVID-19; E11.649 Type 2 diabetes mellitus with hypoglycemia without coma; E86.0 Dehydration; K52.9 Noninfective gastroenteritis and colitis, unspecified; I10 Essential (primary) hypertension; Z98.890 Other specified postprocedural states; Z88.1 Allergy status to other antibiotic agents; Z88.0 Allergy status to penicillin; Z91.018 Allergy to other foods; Z90.89 Acquired absence of other organs
CPT/HCPCS: 0097U; 0241U; 36415; 36556; 51702; 51798; 71045; 76770; 80048; 80053; 80069; 80074; 81001; 82330; 82550; 82607; 82728; 82746; 82947; 83010; 83036; 83540; 83550; 83615; 83690; 83735; 83880; 84484; 84550; 85014; 85018; 85025; 85610; 86317; 87040; 87086; 93005; 93010; 93306; 94660; 94760; 96361; 96374; 96375; 96376; 97110; 97112; 97161; 97530; 99285-25; A9270; C1751; C1752; J2060; J2405; J2550; J2916; J3010; J3480; J7030; J7042; J7050; J7060; J7120

== ENCOUNTER → 2021-07-02 | Outpatient (CLI) | payer OTHER ==
[~2021-07-02] MED LIST changes: +ASCO500 PO; +FERSU300 PO; +PREG50 PO; +XARELTO20 MG PO
[2021-07-05 10:15] LABS: Adenovirus F 40/41 Not Detected (NOT DETECT); Astrovirus Not Detected (NOT DETECT); Campylobacter Sp Not Detected (NOT DETECT); Cryptosporidium Not Detected (NOT DETECT); Cyclospora Cayetanensis Not Detected (NOT DETECT); E. Coli O157 Not Detected (NOT DETECT); Entamoeba Histolytica Not Detected (NOT DETECT); Enteroaggregative E. coli-EAEC Not Detected (NOT DETECT); Enteropathogenic E. coli-EPEC Not Detected (NOT DETECT); Enterotoxigenic E. coli-ETEC Not Detected (NOT DETECT); Giardia Lamblia Not Detected (NOT DETECT); Norovirus GI/GII Not Detected (NOT DETECT); Plesiomonas Shigelloides Not Detected (NOT DETECT); Rotavirus A Not Detected (NOT DETECT); Salmonella Sp Not Detected (NOT DETECT); Sapovirus Not Detected (NOT DETECT); Shiga Toxin-prod E. coli-STEC Not Detected (NOT DETECT); Shigella/Enteroin E. coli-EIEC Not Detected (NOT DETECT); Vibrio Cholerae Not Detected (NOT DETECT); Vibrio Sp Not Detected (NOT DETECT); Yersinia Enterocolitica Not Detected (NOT DETECT)
== END | disposition home or self-care (01) ==
LOC: LAB SHORT 14:45 → LAB 14:45
PROVIDERS: Internal Medicine
DX: R19.7 Diarrhea, unspecified (principal)
CPT/HCPCS: 0097U

== ENCOUNTER 2021-08-02 13:20 | Emergency (ER) | payer OTHER ==
[~2021-08-02] VITALS: Ht 149.9 cm; Wt 90.7 kg
[2021-08-02] MEDS ORDERED: CEPH500 PO (15:29)
== END 2021-08-02 15:39 | disposition home or self-care (01) ==
LOC: ER 13:20
DX: S81.811A Laceration without foreign body, right lower leg, initial encounter (principal); I48.91 Unspecified atrial fibrillation; I10 Essential (primary) hypertension; E11.9 Type 2 diabetes mellitus without complications; Z87.891 Personal history of nicotine dependence; Z88.0 Allergy status to penicillin; Z88.1 Allergy status to other antibiotic agents; Z91.018 Allergy to other foods; Z79.84 Long term (current) use of oral hypoglycemic drugs; Z79.899 Other long term (current) drug therapy; Z79.4 Long term (current) use of insulin; W54.8XXA Other contact with dog, initial encounter
CPT/HCPCS: 12004; 99283-25

== ENCOUNTER 2021-08-11 09:03 | Day surgery (SDC) | payer OTHER ==
[~2021-08-11] VITALS: Ht 149.9 cm; Wt 101.9 kg
[~2021-08-11 09:03] MED LIST changes: +CEPH500 PO
== END 2021-08-11 12:14 | disposition home or self-care (01) ==
LOC: ORSCSDS 09:03
PROVIDERS: Surgery
PROC: 0DBN8ZX Excision of Sigmoid Colon, Via Natural or Artificial Opening Endoscopic, Diagnostic (ICD-10-PCS; principal; 2021-08-11 10:00)
PROC: 0DB78ZX Excision of Stomach, Pylorus, Via Natural or Artificial Opening Endoscopic, Diagnostic (ICD-10-PCS; principal; 2021-08-11 10:00)
PROC: 0DBP8ZX Excision of Rectum, Via Natural or Artificial Opening Endoscopic, Diagnostic (ICD-10-PCS; principal; 2021-08-11 10:00)
PROC: 0DBH8ZX Excision of Cecum, Via Natural or Artificial Opening Endoscopic, Diagnostic (ICD-10-PCS; principal; 2021-08-11 10:00)
DX: K92.1 Melena (principal); D50.9 Iron deficiency anemia, unspecified; D12.0 Benign neoplasm of cecum; D12.5 Benign neoplasm of sigmoid colon; D12.8 Benign neoplasm of rectum; K57.30 Diverticulosis of large intestine without perforation or abscess without bleeding; K31.7 Polyp of stomach and duodenum; K29.70 Gastritis, unspecified, without bleeding; I48.91 Unspecified atrial fibrillation; Z79.01 Long term (current) use of anticoagulants; G47.33 Obstructive sleep apnea (adult) (pediatric); I10 Essential (primary) hypertension; E78.5 Hyperlipidemia, unspecified; E66.01 Morbid (severe) obesity due to excess calories; Z68.42 Body mass index [BMI] 45.0-49.9, adult; E11.319 Type 2 diabetes mellitus with unspecified diabetic retinopathy without macular edema; Z79.4 Long term (current) use of insulin
CPT/HCPCS: 82947; 88305; 88342; J2704; J7120

== ENCOUNTER → 2021-08-18 | Outpatient (CLI) | payer OTHER ==
[2021-08-18 18:30] LABS: BASOPHILS ABSOLUTE AUTO 0.05 K/mm3 (0.00-0.23); BASOPHILS PERCENT AUTO 1 % (0-2); EOSINOPHILS PERCENT AUTO 3 % (0-6); Hematocrit 35.6 % (33.0-51.0); IMMATURE GRAN ABSOLUTE AUTO 0.03 K/mm3 (0.00-0.10); IMMATURE GRAN PERCENT AUTO 0 % (0-1); LYMPHOCYTES ABSOLUTE AUTO 2.08 K/mm3 (0.84-5.20); LYMPHOCYTES PERCENT AUTO 29 % (21-46); MONOCYTES ABSOLUTE AUTO 0.67 K/mm3 (0.16-1.47); MONOCYTES PERCENT AUTO 9 % (4-13); Mean Corpuscular HGB 28.6 pg (26.0-34.0); Mean Corpuscular HGB Conc 30.9 g/dL (31.5-36.5); Mean Corpuscular Volume 93 fL (80-100); Mean Platelet Volume 10.3 fL (9.1-12.4); NEUTROPHILS ABSOLUTE AUTO 4.25 K/mm3 (1.96-9.15); NEUTROPHILS PERCENT AUTO 58 % (41-73); Platelet Count 394 K/mm3 (150-400); RDW Coefficient Variation 14.8 % (11.7-14.2); Red Blood Cell Count 3.85 M/mm3 (3.80-5.20); White Blood Cell Count 7.28 K/mm3 (4.00-11.30)
== END ==
LOC: LAB SHORT 13:43
PROVIDERS: Surgery
DX: K92.1 Melena (principal)
CPT/HCPCS: 36415; 85025